=== PATIENT | male | born 1950 | race Caucasian/White ===

== ENCOUNTER 2025-06-22 10:43 | Outpatient (CLI) | payer MEDICARE ==
[2025-06-22 11:20] LABS: #Basophils 0.04 10x3/uL (0.0-0.2); #Eosinophils 0.35 10x3/uL (0.0-0.5); #Monocytes 0.49 10x3/uL (0.0-1.1); #Neutrophils 3.95 10x3/uL (1.5-8.4); %Basophils 0.7 % (0.0-2.0); %Eosinophils 5.8 % (0.0-6.0); %Lymphocytes 20.2 % (18.0-47.0); %Monocytes 8.1 % (0.0-10.0); %Neutrophils 64.9 % (40.0-75.0); Hematocrit 39.2 % (38.8-50.0); Hemoglobin 12.8 g/dL (13.5-17.5); Mean Corpuscular Hemoglobin 30.1 pg (27.0-33.0); Mean Corpuscular Volume 92.2 fL (81.2-95.1); Platelet Count 173 10x3/uL (150-450); Red Blood Cell (RBC) Count 4.25 10x6/uL (4.32-5.72); White Blood Cell (WBC) Count 6.08 10x3/uL (3.5-10.5)
[2025-06-22 11:48] LABS: Anion Gap 11 mmol/L (10-20); BUN (Urea Nitrogen) 20 mg/dL (8.4-25.7); Calc. Creatinine Clearance 0 mL/min (70-130); Calcium 8.8 mg/dL (7.8-10.44); Carbon Dioxide 29 mmol/L (23-31); Chloride 102 mmol/L (98-107); Glucose 94 mg/dL (83-110); Potassium 4.2 mmol/L (3.5-5.1); Sodium 138 mmol/L (136-145)
== END 2025-06-22 10:44 | disposition home or self-care (01) ==
LOC: CSHLAB 10:43
PROVIDERS: ATTEND Surgery
DX: Z01.818 Encounter for other preprocedural examination (principal); K40.90 Unilateral inguinal hernia, without obstruction or gangrene, not specified as recurrent
CPT/HCPCS: 80048; 85025; 93005; 93010

== ENCOUNTER 2025-06-29 05:50 | Day surgery (SDC) | payer MEDICARE ==
[2025-06-22 11:00] VITALS: BMI 23.5
[2025-06-29] MEDS ORDERED: PROPOFOL 20 ML ONE (06:55)
[2025-06-29] MEDS ORDERED: Rocuronium Bromide 10 MG/ML (10ML VIAL) ONE (06:55)
[2025-06-29] MEDS ORDERED: Bupivacaine/Epinephrine 0.25% 30 ML VIAL ONE (06:58)
[2025-06-29] MEDS ORDERED: CEFAZOLIN 2 GM VIAL ONE (06:58)
[2025-06-29] MEDS ORDERED: SUGAMMADEX SODIUM 200 MG/2 ML VIAL ONE (07:48)
[2025-06-29] MEDS ORDERED: HYDROcodone/Acetaminophen 5/325 mg Tablet ONE (09:16)
== END 2025-06-29 10:17 | disposition home or self-care (01) ==
LOC: CSHSDC 05:50
PROVIDERS: ATTEND Surgery
PROC: 0YU54JZ Supplement Right Inguinal Region with Synthetic Substitute, Percutaneous Endoscopic Approach (ICD-10-PCS; principal; 2025-06-29)
DX: K40.90 Unilateral inguinal hernia, without obstruction or gangrene, not specified as recurrent (principal); I10 Essential (primary) hypertension
CPT/HCPCS: 49650; C1781; J2704; S2900